=== PATIENT | female | born 1985 | race American Indian/Alaskan Native ===

== ENCOUNTER 2020-05-20 22:33 | Emergency (ER) | payer SELFPAY ==
[2020-05-20 23:42] VITALS: BP 137/93
== END 2020-05-21 04:00 | disposition left against medical advice (07) ==
LOC: ED 22:33
DX: R22.9 Localized swelling, mass and lump, unspecified (principal); Z53.21 Procedure and treatment not carried out due to patient leaving prior to being seen by health care provider